=== PATIENT | male | born 1955 | race Caucasian/White ===

== ENCOUNTER 2023-03-01 16:35 | Outpatient (OUT) | payer MEDICARE, MEDICAID, SELFPAY ==
--- NOTE | 2023-03-01 | XR_ITS ---
The [address] [address] Patient Name: ANGEL RODRIGUEZ MRN: [id number] date: 1955 Sex: M Assigned Patient Location: [facility] Current Patient Location: Accession/Order Number: [id number] Exam Date: 03/01/2023 17:12 Report Date: 03/02/2023 12:56 At the request of: NON-STAFF PHYSICIAN Procedure: XR abdomen 1V EXAM: XR abdomen 1V HISTORY: KIDNEY STONE N20.0 COMPARISON: None. TECHNIQUE: AP view of the abdomen. FINDINGS: Nonobstructive bowel gas pattern is noted. There is no suspicious calcification. The osseous structures are intact. XR/XR abdomen 1V IMPRESSION: Nonobstructive bowel gas pattern. No suspicious renal calcification. Electronically authenticated by: DELIA TRUJILLO Date: 03/02/2023 12:56
== END 2023-03-01 16:36 | disposition home or self-care (01) ==
PROVIDERS: PCP Family Medicine
DX: N20.0 Calculus of kidney (principal)
CPT/HCPCS: 74018

== ENCOUNTER 2023-07-30 18:47 | Emergency (ER) | payer MEDICARE, MEDICAID, SELFPAY ==
[2023-07-30] VITALS (7 sets, daily range): BP systolic 135–136; BP diastolic 81–82; PULSE 67–107; RESP 16; TEMP 36.4; O2SAT 95–100; BMI 43.3
--- NOTE | 2023-07-30 19:19 | PC.NURSE ---
Has 2 large hernia's Umbilicus and right upper abdomen.
--- NOTE | 2023-07-30 19:22 | ECG_ITS ---
The [facility] Test Date: 2023-07-30 Pat Name: ANGEL RODRIGUEZ Department: Room: - Gender: Male Nail Expert: : 1955 Requested By: [id number] Order Number: [id number] Reading MD: VIOLA GATICA Measurements Intervals [place] Rate: 95 P: 60 WA: 164 QRS: -11 QRSD: 88 T: 90 QT: 342 QTc: 394 Interpretive Statements 1100 Sinus rhythm 4068 Nonspecific [place] abnormality 5211 Minimal voltage criteria for LVH, may be normal variant 8102 Low QRS voltage in chest leads 9130 borderline ECG Electronically Signed On 08-01-2023 11:29:28 EST by VIOLA GATICA
--- NOTE | 2023-07-30 19:22 | CT_ITS ---
[address] [address] Patient Name: ANGEL RODRIGUEZ MRN: [id number] date: 1955 Sex: M Assigned Patient Location: ER Current Patient Location: ER Accession/Order Number: [id number] Exam Date: 07/30/2023 20:13 Report Date: 07/30/2023 20:59 At the request of: CASSIDY ZHOU Procedure: CT abdomen pelvis w con EXAM: CT abdomen pelvis w con HISTORY: diffuse abdominal pain, history of two hernias COMPARISON: None. TECHNIQUE: CT of abdomen and pelvis with intravenous contrast. Dose reduction techniques were achieved by using automated exposure control and/or adjustment of mA and/or kV according to patient size and/or use of iterative reconstruction technique. FINDINGS: TUBES AND IMPLANTS: None. LOWER CHEST: Unremarkable ABDOMEN and PELVIS ABDOMINAL WALL AND SOFT TISSUES: 2 right-sided ventral hernias (the medial one measuring 6.4 centimeters and the more lateral one measuring 19 centimeters) containing fat as well as colonic and small bowel loops without associated obstruction. Fat-containing periumbilical hernia measuring 5.9 centimeters BONES: No suspicious lesions. Multilevel degenerative changes of the spine. ARTERIES: No aortoiliac aneurysm VEINS: Unremarkable. LYMPH NODES: Unremarkable. PERITONEUM/ RETROPERITONEUM: Unremarkable. BOWEL: No obstruction. APPENDIX: Not identified. LIVER: Hepatic dome is incompletely evaluated due to scanning technique. No suspicious lesions within the [id number] GALLBLADDER: Surgically absent BILE DUCTS: Not dilated SPLEEN: Calcified granulomata PANCREAS: Unremarkable. ADRENALS: Unremarkable. KIDNEYS/ URETERS: No stones or hydronephrosis. Bilateral renal cysts. REPRODUCTIVE ORGANS: Unremarkable URINARY BLADDER: Mild diffuse wall thickening of the bladder. Contrast seen within on the delayed views. CT/CT abdomen pelvis w con IMPRESSION: Two right-sided ventral hernias (the medial one measuring 6.4 centimeters and the more lateral one measuring 19 centimeters) containing fat as well as colonic and small bowel loops without associated obstruction. Fat-containing periumbilical hernia measuring 5.9 centimeters. Mild diffuse wall thickening of the bladder likely representing cystitis. Electronically authenticated by: LOC MYERS Date: 07/30/2023 20:59
--- NOTE | 2023-07-30 19:23 | ED_ITS ---
HPI - General Adult General Chief complaint: Nausea/Vomiting/Diarrhea Stated complaint: ABDOMINAL PAIN Time Seen by Provider: 07/30/23 19:17 Source: patient Mode of arrival: Wheelchair Limitations: no limitations History of Present Illness HPI narrative: 67-year-old male presents for nausea and diarrhea and abdominal pain. It all started today. He's been nauseous but has not vomited. He had diarrhea once. No blood in his stool. He complains of diffuse abdominal pain as well. He gives a history of two hernias which have not been operated on, one is umbilical and he states the other one is near where they took out his gallbladder. No fever. The pain is moderate and continuous. Related Data Home Medications Medication Instructions Recorded Confirmed cholecalciferol (vitamin D3) 125 07/30/23 mcg (5,000 unit) tablet gabapentin 300 mg capsule mg 07/30/23 insulin aspart U-100 100 unit/mL subcut 07/30/23 (3 mL) subcutaneous pen insulin detemir U-100 100 unit/mL unit subcut 07/30/23 (3 mL) subcutaneous pen (Levemir FlexPen) metformin 500 mg tablet,extended mg PO 07/30/23 release 24 hr oxybutynin chloride 5 mg tablet mg 07/30/23 semaglutide 0.25 mg or 0.5 mg (2 mg subcut 07/30/23 mg/3 mL) subcutaneous pen injector (Ozempic) Previous Rx's Medication Instructions Recorded cephalexin 500 mg capsule 500 mg PO TID 7 days #21 caps 07/30/23 Allergies Allergy/AdvReac Type Severity Reaction Status Date / Time No Known Drug Allergies Allergy Verified 07/30/23 19:08 Review of Systems ROS Narrative A ten point review of systems is negative except as noted above. Exam Narrative Exam Narrative: Nurses note and vital signs reviewed and patient is not hypoxic. General: The patient appears well and in no apparent distress. Patient is resting comfortably on cart. Skin: Warm, dry, no pallor noted. There is no rash noted. Head: Normocephalic, atraumatic Eye: Normal conjunctiva, no drainage Ears, Nose, Mouth, and Throat: oral mucosa is moist. Nares patent. Cardiovascular: Regular Rate and Rhythm Respiratory: Patient is in no distress, no accessory muscle use, lungs are clear to auscultation, no wheezing, rales or rhonchi Back: non-tender GI: obese, nondistended, diffusely tender Musculoskeletal: The patient has no evidence of calf tenderness, no pitting edema, symmetrical pulses noted bilaterally Neurological: A&O, normal speech Psychiatric: Cooperative Constitutional Vital Signs, click to edit/add: Last Vital Signs Temp 97.6 F 07/30/23 19:01 Pulse 107 H 07/30/23 20:58 Resp 16 07/30/23 20:58 BP 135/82 07/30/23 20:58 Pulse Ox 98 07/30/23 20:58 O2 Del Method Room Air 07/30/23 20:58 Course Vital Signs Vital signs: Vital Signs Temperature 97.6 F 07/30/23 19:01 Pulse Rate 95 H 07/30/23 19:01 Respiratory Rate 16 07/30/23 19:01 Blood Pressure 136/81 07/30/23 19:01 Pulse Oximetry 100 07/30/23 19:01 Oxygen Delivery Method Room Air 07/30/23 19:01 Temperature 97.6 F 07/30/23 19:01 Pulse Rate 107 H 07/30/23 20:58 Respiratory Rate 16 07/30/23 20:58 Blood Pressure 135/82 07/30/23 20:58 Pulse Oximetry 98 07/30/23 20:58 Oxygen Delivery Method Room Air 07/30/23 20:58 Medical Decision Making MDM Narrative Medical decision making narrative: CT scan shows his known hernias but no acute findings other than the possibility of cystitis. Urinalysis is consistent with a urinary tract infection. He was given IV Rocephin and urine culture was ordered. He doesn't require admission the hospital and was prescribed Keflex pending the urine culture. He was belching here and was given Gas-X and was recommended to pharmacy picking tech some Gas-X at the pharmacy when he picks up his prescription. Treatment diagnosis and follow- up were discussed with the patient. Differential Diagnosis Differential Diagnosis: bowel obstruction, diverticulitis, urinary tract infection, pyelonephritis Lab Data Lab results reviewed: Yes I reviewed the patient's lab results Labs: Lab Results 07/30/23 07/30/23 Range/Units 19:14 20:40 WBC 7.2 (4.0-11.0) 10^3/uL RBC 5.33 (4.70-6.10) 10^6/uL Hgb 15.9 (14.0-18.0) g/dL Hct 49.2 (42.0-54.0) % MCV 92.3 (80.0-94.0) fL MCH 29.8 (25.9-34.0) pg MCHC 32.3 (29.9-35.2) g/dL RDW 13.6 (11.0-15.0) % Plt Count 203 (150-450) 10^3/uL MPV 10.7 (9.5-13.5) fL Neut % (Auto) 79.2 H (43.0-75.0) % Lymph % (Auto) 14.5 L (20.5-60.0) % [place] % (Auto) 5.2 (1.7-12.0) % Eos % (Auto) 0.4 L (0.9-7.0) % Baso % (Auto) 0.6 (0.2-2.0) % Neut # (Auto) 5.7 (1.4-6.5) 10^3/uL Lymph # (Auto) 1.0 L (1.2-3.8) 10^3/uL [place] # (Auto) 0.4 (0.3-0.8) 10^3/uL Eos # (Auto) 0.0 (0.0-0.7) 10^3/uL Baso # (Auto) 0.0 (0.0-0.1) 10^3/uL Abs Immat Gran (auto) 0.01 (0.00-0.03) 10^3/uL Imm/Tot Granulo (auto) 0.1 (0.0-0.5) % Sodium 137 (136-145) mmol/L Potassium 3.5 (3.5-5.1) mmol/L Chloride 101 (98-107) mmol/L Carbon Dioxide 30.6 (21.0-32.0) mmol/L Anion Gap 8.9 BUN 15.0 (7.0-18.0) mg/dL Creatinine 1.05 (0.70-1.30) mg/dL Est GFR ( Amer) >60 (>=60) Est GFR (Non-Af Amer) >60 (>=60) BUN/Creatinine Ratio 14.3 Glucose 135 H (74-106) mg/dL Calcium 9.8 (8.5-10.1) mg/dL Urine Color Lt. yellow (YELLOW) Urine Clarity Clear (CLEAR) Urine pH 6.5 (5.0-9.0) Ur Specific [place] <=1.005 A (1.005-1.025) Urine Protein Negative (NEG/TRACE) mg/dL Urine Glucose (UA) Negative (NEGATIVE) mg/dL Urine Ketones 15 A (NEGATIVE) mg/dL Urine Occult Blood Moderate A (NEGATIVE) Urine Nitrite Negative (NEGATIVE) Urine Bilirubin Negative (NEGATIVE) Urine Urobilinogen 1.0 (0.2-1.0) EU/dL Ur Leukocyte Esterase Moderate A (NEGATIVE) Urine RBC 2-5 A (0-2) #/HPF Urine WBC >100 A (NONE SEEN) #/HPF Ur Squamous Epith Cells None seen (NONE/RARE) #/LPF Urine Crystals None seen (None Seen) #/HPF Urine Bacteria Small A (NONE SEEN) #/HPF Urine Casts None seen (NONE SEEN) #/LPF Urine Mucus None seen (NONE SEEN) Urine Yeast Seen A (NONE SEEN) Imaging Data CT scan - abdomen: Radiologist's impression: ITS Impressions Abdomen/Pelvis CT 07/30/23 19:22 IMPRESSION: Two right-sided ventral hernias (the medial one measuring 6.4 centimeters and the more lateral one measuring 19 centimeters) containing fat as well as colonic and small bowel loops without associated obstruction. Fat-containing periumbilical hernia measuring 5.9 centimeters. Mild diffuse wall thickening of the bladder likely representing cystitis. Electronically authenticated by: LOC MYERS Date: 07/30/2023 20:59 ECG Data Attestation: I personally reviewed and interpreted this ECG as follows: (EKG on my interpretation shows sinus rhythm with no acute changes and a rate of 95.) Discharge Plan Discharge Chief Complaint: Nausea/Vomiting/Diarrhea Clinical Impression: Urinary tract infection Patient Disposition: Home, Self-Care Time of Disposition Decision: 22:30 Condition: Good Mode of Transportation: Private Vehicle Prescriptions / Home Meds: New cephalexin 500 mg capsule 500 mg PO TID 7 Days Qty: 21 0RF No Action gabapentin 300 mg capsule oxybutynin chloride 5 mg tablet metformin 500 mg tablet extended release 24 hr PO insulin aspart U-100 100 unit/mL (3 mL) insulin pen SUBCUT Levemir FlexPen 100 unit/mL (3 mL) insulin pen SUBCUT cholecalciferol (vitamin D3) 125 mcg (5,000 unit) tablet Ozempic 0.25 mg or 0.5 mg (2 mg/3 mL) pen injector SUBCUT Instructions: Urinary Tract Infection in Men (ED) Stand Alone Forms: Portal Instructions Referrals: JACOB SEWELL [Primary Care Provider] - 1 week
[2023-07-30 19:34] LABS: Basophils Percent Auto 0.6 % (0.2-2.0); Eosinophils Percent Auto 0.4 % (0.9-7.0); Hematocrit 49.2 % (42.0-54.0); Hemoglobin 15.9 g/dL (14.0-18.0); Immature Granulocytes Abs Auto 0.01 10^3/uL (0.00-0.03); Immature Granulocytes Pct Auto 0.1 % (0.0-0.5); Lymphocytes Percent Auto 14.5 % (20.5-60.0); Mean Corpuscular HGB Conc 32.3 g/dL (29.9-35.2); Mean Corpuscular Hemoglobin 29.8 pg (25.9-34.0); Mean Corpuscular Volume 92.3 fL (80.0-94.0); Mean Platelet Volume 10.7 fL (9.5-13.5); Monocytes Absolute Auto 0.4 10^3/uL (0.3-0.8); Monocytes Percent Auto 5.2 % (1.7-12.0); Neutrophils Absolute Auto 5.7 10^3/uL (1.4-6.5); Neutrophils Percent Auto 79.2 % (43.0-75.0); Platelet Count 203 10^3/uL (150-450); Red Blood Count 5.33 10^6/uL (4.70-6.10); Red Cell Distribution Width 13.6 % (11.0-15.0); White Blood Count 7.2 10^3/uL (4.0-11.0)
[2023-07-30] MEDS: 0.9 % SODIUM CHLORIDE 1,000 ML 125 ML IV (19:37)
[2023-07-30] MEDS: ONDANSETRON PF 4 MG/2 ML VIAL IV (19:37)
[2023-07-30 19:43] LABS: Anion Gap 8.9; BUN Creatinine Ratio 14.3; Calcium 9.8 mg/dL (8.5-10.1); Carbon Dioxide 30.6 mmol/L (21.0-32.0); Chloride 101 mmol/L (98-107); Estimated GFR (African America >60 (>=60); Estimated GFR (Non-African Ame >60 (>=60); Glucose 135 mg/dL (74-106); Potassium 3.5 mmol/L (3.5-5.1); Sodium 137 mmol/L (136-145)
[2023-07-30 20:46] LABS: Bilirubin Urine NEGATIVE (NEGATIVE); Blood Urine MODERATE (NEGATIVE); Clarity Urine CLEAR (CLEAR); Color Urine LT. YELLOW (YELLOW); Glucose Urine UA NEGATIVE (NEGATIVE); Ketones Urine 15 mg/dL (NEGATIVE); Leukocyte Esterase Urine MODERATE (NEGATIVE); Nitrite Urine NEGATIVE (NEGATIVE); Protein Urine NEGATIVE (NEG/TRACE); Specific Gravity Urine <=1.005 (1.005-1.025); pH Urine 6.5 (5.0-9.0)
[2023-07-30 20:53] LABS: Bacteria Urine SMALL #/HPF (NONE SEEN); Cast Seen? NONE SEEN #/LPF (NONE SEEN); Crystals Seen? None Seen #/HPF (None Seen); Mucus Urine NONE SEEN (NONE SEEN); Squamous Epithelial Cell Urine NONE SEEN #/LPF (NONE/RARE); WBC Urine >100 #/HPF (NONE SEEN)
[2023-07-30] MEDS: CEFTRIAXONE 1,000 MG in 0.9 % SODIUM CHLORIDE 50 ML 100 MG IV (21:16)
[2023-07-30] MEDS: SIMETHICONE 80 MG TAB.CHEW PO (22:38)
== END 2023-07-30 22:50 | disposition home or self-care (01) ==
PROVIDERS: Emergency Provider Emergency Medicine; PCP Nurse Practitioner
DX: N39.0 Urinary tract infection, site not specified (principal); E66.9 Obesity, unspecified; Z68.41 Body mass index [BMI] 40.0-44.9, adult; Z79.899 Other long term (current) drug therapy; Z79.4 Long term (current) use of insulin
CPT/HCPCS: 36415; 74177; 80048; 81001; 85025; 87086; 93005; 96361; 96365; 96375; 99285; J0696; J2405; Q9967

== ENCOUNTER 2023-09-08 15:27 | Emergency (ER) | payer MEDICARE, MEDICAID, SELFPAY ==
[2023-09-08 15:33] VITALS: BP 154/93; PULSE 82; RESP 18; TEMP 36.4; O2SAT 98; BMI 43.2
--- NOTE | 2023-09-08 15:51 | CT_ITS ---
The [address] [address] Patient Name: ANGEL RODRIGUEZ MRN: [id number] date: 1955 Sex: M Assigned Patient Location: ER Current Patient Location: ER Accession/Order Number: [id number] Exam Date: 09/08/2023 16:52 Report Date: 09/08/2023 17:25 At the request of: CASSIDY ZHOU Procedure: CT abdomen pelvis w con EXAM: CT abdomen pelvis w con HISTORY: Right-sided abdominal pain, history of hernias COMPARISON: 07/30/2023 TECHNIQUE: Axial CT imaging was performed through the abdomen and pelvis with intravenous contrast. Multiplanar reformats were performed. Dose reduction techniques were achieved by using automated exposure control and/or adjustment of mA and/or kV according to patient size and/or use of iterative reconstruction technique. FINDINGS: Lung bases: Lung bases are clear. No pleural effusion. GI upper: Unremarkable. Liver: Mild hepatic steatosis. Normal size and contour. Gallbladder: Cholecystectomy. Biliary system: No intra or extrahepatic biliary ductal dilatation. Spleen: Normal size. Pancreas: Unremarkable. Adrenal glands: Normal adrenal glands. Kidneys/ureters: Normal contours. No hydronephrosis. No nephrolithiasis or ureterolithiasis. Stable multiple bilateral simple renal cysts. Vessels: No aneurysm. Lymph Nodes: No lymphadenopathy. Small bowel: No wall thickening or dilatation. Colon: No wall thickening or dilatation. Appendix: No findings of appendicitis. Peritoneal cavity: No free fluid or pneumoperitoneum. Lower : Prostatomegaly. Correlation with PSA is recommended. Trabeculation of the urinary bladder, likely due to chronic outlet obstruction Bones: No acute bony abnormality. Soft tissues: Interval increase in size of abnormal cranium now measures 5.6 x 6 cm (previously was 2.6 x 6.3 cm with narrow neck measures 1.1 cm. Right ventral abdominal hernia, containing nondistended small bowel and large bowel loops, mesenteric fat and small fluid, measures 8 x 1.7 cm, without significant change in size compared to prior study. The aperture measures 4.3 cm. Small fat-containing right inguinal hernia. Additional findings: None. CT/CT abdomen pelvis w con IMPRESSION: Interval increase in size of abnormal cranium now measures 5.6 x 6 cm (previously was 2.6 x 6.3 cm with narrow neck measures 1.1 cm. Stable right ventral abdominal hernia, containing nondistended small bowel and large bowel loops, mesenteric fat and small fluid, measures 8 x 1.7 cm with the aperture measures 4.3 cm. Small fat-containing right inguinal hernia. Electronically authenticated by: GISSELLE AKINS Date: 09/08/2023 17:25
--- NOTE | 2023-09-08 15:57 | ED.ABDPAIN1 ---
HPI - Abdominal Pain General Chief Complaint: Abdominal Pain Stated Complaint: Abdominal Pain Time Seen by Provider: 09/08/23 15:31 Source: patient Mode of arrival: Wheelchair History of Present Illness HPI narrative: 67-year-old male presents for abdominal pain. Its on the right side of his abdomen and it has been coming and going. This time he had it for 2 days. He has not been vomiting and he has been having normal bowel movements. No fever or injury. He has a history of 2 hernias and neither 1 has been repaired. 1 he states is by his umbilicus and the other she states is by his right upper quadrant surgical wound from open cholecystectomy. The pain is moderate and it waxes and wanes. Related Data Home Medications Medication Instructions Recorded Confirmed cholecalciferol (vitamin D3) 125 125 mcg PO DAILY 07/30/23 09/08/23 mcg (5,000 unit) tablet gabapentin 300 mg capsule 300 mg PO TID 07/30/23 09/08/23 insulin detemir U-100 100 unit/mL 40 unit subcut QAM 07/30/23 09/08/23 (3 mL) subcutaneous pen (Levemir FlexPen) metformin 500 mg tablet,extended 1,000 mg PO BID 07/30/23 09/08/23 release 24 hr oxybutynin chloride 5 mg tablet 5 mg PO BID PRN bladder spasms 07/30/23 09/08/23 semaglutide 0.25 mg or 0.5 mg (2 0.5 mg subcut QWEEK 07/30/23 09/08/23 mg/3 mL) subcutaneous pen injector (Ozempic) Previous Rx's Medication Instructions Recorded ciprofloxacin HCl 250 mg tablet 250 mg PO BID #14 tabs 09/08/23 (Cipro) Allergies Allergy/AdvReac Type Severity Reaction Status Date / Time No Known Drug Allergies Allergy Verified 07/30/23 19:08 Review of Systems ROS Narrative A ten point review of systems is negative except as noted above. Exam Narrative Exam Narrative: Nurses note and vital signs reviewed and patient is not hypoxic. General: The patient appears well and in no apparent distress. Patient is resting comfortably on cart. Skin: Warm, dry, no pallor noted. There is no rash noted. Head: Normocephalic, atraumatic Eye: Normal conjunctiva, no drainage Ears, Nose, Mouth, and Throat: oral mucosa is moist. Nares patent. Cardiovascular: Regular Rate and Rhythm Respiratory: Patient is in no distress, no accessory muscle use, lungs are clear to auscultation, no wheezing, rales or rhonchi Back: non-tender GI: Musculoskeletal: The patient has no evidence of calf tenderness, no pitting edema, symmetrical pulses noted bilaterally Neurological: A&O x4, normal speech Psychiatric: Cooperative Constitutional Vital Signs, click to edit/add: Last Vital Signs Temp 97.6 F 09/08/23 15:33 Pulse 82 09/08/23 15:33 Resp 18 09/08/23 15:33 BP 154/93 H 09/08/23 15:33 Pulse Ox 98 09/08/23 15:33 O2 Del Method Room Air 09/08/23 15:57 Course Vital Signs Vital signs: Vital Signs Temperature 97.6 F 09/08/23 15:33 Pulse Rate 82 09/08/23 15:33 Respiratory Rate 18 09/08/23 15:33 Blood Pressure 154/93 H 09/08/23 15:33 Pulse Oximetry 98 09/08/23 15:33 Oxygen Delivery Method Room Air 09/08/23 15:33 Temperature 97.6 F 09/08/23 15:33 Pulse Rate 82 09/08/23 15:33 Respiratory Rate 18 09/08/23 15:33 Blood Pressure 154/93 H 09/08/23 15:33 Pulse Oximetry 98 09/08/23 15:33 Oxygen Delivery Method Room Air 09/08/23 15:57 MDM - Abdominal Pain MDM Narrative Medical decision making narrative: CAT scan shows hernias that are slightly larger but there is no obstruction or incarceration. He has a urinary tract infection and was given IV Rocephin and prescribed Cipro, he was recently on Keflex. He does not require admission to the hospital. Treatment diagnosis and follow-up were discussed with the patient. Differential Diagnosis Differential diagnosis: Likely abdominal pain, calculus of kidney, constipation, diverticulitis, gastroenteritis and small bowel obstruction Lab Data Attestation: I reviewed the patient's lab results. Labs: Lab Results 09/08/23 09/08/23 Range/Units 15:55 17:24 WBC 6.8 (4.0-11.0) 10^3/uL RBC 5.65 (4.70-6.10) 10^6/uL Hgb 16.7 (14.0-18.0) g/dL Hct 51.4 (42.0-54.0) % MCV 91.0 (80.0-94.0) fL MCH 29.6 (25.9-34.0) pg MCHC 32.5 (29.9-35.2) g/dL RDW 14.4 (11.0-15.0) % Plt Count 167 (150-450) 10^3/uL MPV 12.0 (9.5-13.5) fL Neut % (Auto) 66.4 (43.0-75.0) % Lymph % (Auto) 24.5 (20.5-60.0) % [place] % (Auto) 6.8 (1.7-12.0) % Eos % (Auto) 1.6 (0.9-7.0) % Baso % (Auto) 0.6 (0.2-2.0) % Neut # (Auto) 4.5 (1.4-6.5) 10^3/uL Lymph # (Auto) 1.7 (1.2-3.8) 10^3/uL [place] # (Auto) 0.5 (0.3-0.8) 10^3/uL Eos # (Auto) 0.1 (0.0-0.7) 10^3/uL Baso # (Auto) 0.0 (0.0-0.1) 10^3/uL Abs Immat Gran (auto) 0.01 (0.00-0.03) 10^3/uL Imm/Tot Granulo (auto) 0.1 (0.0-0.5) % Sodium 140 (136-145) mmol/L Potassium 5.4 H (3.5-5.1) mmol/L Chloride 103 (98-107) mmol/L Carbon Dioxide 27.8 (21.0-32.0) mmol/L Anion Gap 14.6 BUN 12.0 (7.0-18.0) mg/dL Creatinine 0.69 L (0.70-1.30) mg/dL Est GFR ( Amer) >60 (>=60) Est GFR (Non-Af Amer) >60 (>=60) BUN/Creatinine Ratio 17.4 Glucose 132 H (74-106) mg/dL Calcium 9.6 (8.5-10.1) mg/dL Total Bilirubin 1.2 H (0.2-1.0) mg/dL Direct Bilirubin 0.1 (0.0-0.2) mg/dL AST 50 H (15-37) U/L ALT 30 (16-63) U/L Alkaline Phosphatase 60 (46-116) U/L Total Protein 8.3 H (6.4-8.2) g/dL Albumin 3.4 (3.4-5.0) g/dL Globulin 4.9 g/dL Albumin/Globulin Ratio 0.7 Amylase 47 (25-115) U/L Lipase 18.0 (16.0-77.0) U/L Urine Color Lt. yellow (YELLOW) Urine Clarity Sl cloudy (CLEAR) Urine pH 6.0 (5.0-9.0) Ur Specific [place] 1.020 (1.005-1.025) Urine Protein 30 A (NEG/TRACE) mg/dL Urine Glucose (UA) Negative (NEGATIVE) mg/dL Urine Ketones Negative (NEGATIVE) mg/dL Urine Occult Blood Large A (NEGATIVE) Urine Nitrite Negative (NEGATIVE) Urine Bilirubin Negative (NEGATIVE) Urine Urobilinogen 1.0 (0.2-1.0) EU/dL Ur Leukocyte Esterase Moderate A (NEGATIVE) Urine RBC 50-75 A (0-2) #/HPF Urine WBC 20-50 A (NONE SEEN) #/HPF Ur Squamous Epith Cells Few A (NONE/RARE) #/LPF Urine Crystals None seen (None Seen) #/HPF Urine Bacteria Small A (NONE SEEN) #/HPF Urine Casts None seen (NONE SEEN) #/LPF Urine Mucus Trace A (NONE SEEN) Urine Yeast Seen A (NONE SEEN) Imaging Data CT scan - abdomen: Radiologist's impression: ITS Impressions Abdomen/Pelvis CT 09/08/23 15:51 IMPRESSION: Interval increase in size of abnormal cranium now measures 5.6 x 6 cm (previously was 2.6 x 6.3 cm with narrow neck measures 1.1 cm. Stable right ventral abdominal hernia, containing nondistended small bowel and large bowel loops, mesenteric fat and small fluid, measures 8 x 1.7 cm with the aperture measures 4.3 cm. Small fat-containing right inguinal hernia. Electronically authenticated by: GISSELLE AKINS Date: 09/08/2023 17:25 ADDENDUM: 09/08/23 4199 IMPRESSION: Interval increase in size of abnormal cranium now measures 5. 6 x 6 cm (previously was 2. 6 x 6. 3 cm with narrow neck measures 1. 1 cm. Stable right ventral abdominal hernia, containing nondistended small bowel and large bowel loops, mesenteric fat and small fluid, measures 8 x 1. 7 cm with the aperture measures 4. 3 cm. Small fat-containing right inguinal hernia. Electronically authenticated by: GISSELLE AKINS Date: 09/08/2023 17:55 Discharge Plan Discharge Chief Complaint: Abdominal Pain Clinical Impression: Urinary tract infection Patient Disposition: Home, Self-Care Time of Disposition Decision: 18:14 Condition: Good Mode of Transportation: Private Vehicle Prescriptions / Home Meds: New ciprofloxacin HCl [Cipro] 250 mg tablet 250 mg PO BID Qty: 14 0RF No Action gabapentin 300 mg capsule 300 mg PO TID oxybutynin chloride 5 mg tablet 5 mg PO BID PRN (Reason: bladder spasms) metformin 500 mg tablet extended release 24 hr 1,000 mg PO BID Levemir FlexPen 100 unit/mL (3 mL) insulin pen 40 unit SUBCUT QAM cholecalciferol (vitamin D3) 125 mcg (5,000 unit) tablet 125 mcg PO DAILY Ozempic 0.25 mg or 0.5 mg (2 mg/3 mL) pen injector 0.5 mg SUBCUT QWEEK Instructions: Urinary Tract Infection in Men (ED) Stand Alone Forms: Portal Instructions Referrals: JACOB SEWELL [Primary Care Provider] - 1 week
[2023-09-08 16:23] LABS: Basophils Percent Auto 0.6 % (0.2-2.0); Eosinophils Absolute Auto 0.1 10^3/uL (0.0-0.7); Eosinophils Percent Auto 1.6 % (0.9-7.0); Hematocrit 51.4 % (42.0-54.0); Hemoglobin 16.7 g/dL (14.0-18.0); Immature Granulocytes Abs Auto 0.01 10^3/uL (0.00-0.03); Immature Granulocytes Pct Auto 0.1 % (0.0-0.5); Lymphocytes Absolute Auto 1.7 10^3/uL (1.2-3.8); Lymphocytes Percent Auto 24.5 % (20.5-60.0); Mean Corpuscular HGB Conc 32.5 g/dL (29.9-35.2); Mean Corpuscular Hemoglobin 29.6 pg (25.9-34.0); Monocytes Absolute Auto 0.5 10^3/uL (0.3-0.8); Monocytes Percent Auto 6.8 % (1.7-12.0); Neutrophils Absolute Auto 4.5 10^3/uL (1.4-6.5); Neutrophils Percent Auto 66.4 % (43.0-75.0); Platelet Count 167 10^3/uL (150-450); Red Blood Count 5.65 10^6/uL (4.70-6.10); Red Cell Distribution Width 14.4 % (11.0-15.0); White Blood Count 6.8 10^3/uL (4.0-11.0)
[2023-09-08 16:32] LABS: Alanine Aminotransferase 30 U/L (16-63); Albumin Globulin Ratio 0.7; Albumin Level 3.4 g/dL (3.4-5.0); Alkaline Phosphatase 60 U/L (46-116); Amylase 47 U/L (25-115); Anion Gap 14.6; Aspartate Amino Transferase 50 U/L (15-37); BUN Creatinine Ratio 17.4; Bilirubin Direct 0.1 mg/dL (0.0-0.2); Bilirubin Total 1.2 mg/dL (0.2-1.0); Calcium 9.6 mg/dL (8.5-10.1); Carbon Dioxide 27.8 mmol/L (21.0-32.0); Chloride 103 mmol/L (98-107); Estimated GFR (African America >60 (>=60); Estimated GFR (Non-African Ame >60 (>=60); Globulin 4.9 g/dL; Glucose 132 mg/dL (74-106); Potassium 5.4 mmol/L (3.5-5.1); Sodium 140 mmol/L (136-145); Total Protein 8.3 g/dL (6.4-8.2)
[2023-09-08 17:57] LABS: Bilirubin Urine NEGATIVE (NEGATIVE); Blood Urine LARGE (NEGATIVE); Clarity Urine SL CLOUDY (CLEAR); Color Urine LT. YELLOW (YELLOW); Glucose Urine UA NEGATIVE (NEGATIVE); Ketones Urine NEGATIVE (NEGATIVE); Leukocyte Esterase Urine MODERATE (NEGATIVE); Nitrite Urine NEGATIVE (NEGATIVE); Protein Urine 30 mg/dL (NEG/TRACE)
[2023-09-08 18:07] LABS: Bacteria Urine SMALL #/HPF (NONE SEEN); Cast Seen? NONE SEEN #/LPF (NONE SEEN); Crystals Seen? None Seen #/HPF (None Seen); Mucus Urine TRACE (NONE SEEN); RBC Urine 50-75 #/HPF (0-2); Squamous Epithelial Cell Urine FEW #/LPF (NONE/RARE); WBC Urine 20-50 #/HPF (NONE SEEN)
[2023-09-08] MEDS: CEFTRIAXONE 1,000 MG in 0.9 % SODIUM CHLORIDE 50 ML 100 MG IV (18:23)
== END 2023-09-08 18:56 | disposition home or self-care (01) ==
PROVIDERS: Emergency Provider Emergency Medicine; PCP Nurse Practitioner
DX: N39.0 Urinary tract infection, site not specified (principal); K43.9 Ventral hernia without obstruction or gangrene; K40.90 Unilateral inguinal hernia, without obstruction or gangrene, not specified as recurrent; Z90.49 Acquired absence of other specified parts of digestive tract; Z79.4 Long term (current) use of insulin; Z79.84 Long term (current) use of oral hypoglycemic drugs; Z79.899 Other long term (current) drug therapy
CPT/HCPCS: 36415; 74177; 80048; 80076; 81001; 82150; 83690; 85025; 87086; 96365; 99285; J0696